=== PATIENT | female | born 1960 | race Caucasian/White ===

== ENCOUNTER 2020-12-24 12:37 | Emergency (ER) | payer MEDICARE, MEDICAID, SELFPAY ==
[2020-12-24 12:41] VITALS: BP 107/58; PULSE 63; RESP 18; TEMP 36.4; O2SAT 100; BMI 23.8
--- NOTE | 2020-12-24 13:09 | ED.BACK ---
HPI - Back Pain/Injury General Chief Complaint: Back Pain/Injury Stated Complaint: flank pain Time Seen by Provider: 12/24/20 13:09 Source: patient Limitations: no limitations History of Present Illness HPI Narrative: Patient complaining of left lower back pain that is been increasing over the past few days. Patient denies any recent trauma assessment shortness of breath. Patient states pain increases when she lifts her left leg. Patient denies any urinary symptoms history of renal calculi. No other complaints at this time. Pain is 02/19 Related Data Previous Rx's Medication Instructions Recorded ibuprofen 600 mg PO TID PRN #20 tab 12/24/20 methocarbamol 750 mg PO TID PRN #20 tab 12/24/20 Allergies Allergy/AdvReac Type Severity Reaction Status Date / Time meperidine [Demerol] Allergy Unknown Verified 08/21/17 00:00 From DEMEROL Allergy Unknown HBP Uncoded 04/29/20 16:21 Review of Systems Constitutional: Constitutional: Denies chills, Denies fever(s), Denies headache(s) and Denies weakness ENT: Denies headache(s) Cardiovascular: Cardiovascular: Denies chest pain, Denies chest pain with activity, Denies Epigastric Pain, Denies palpitations and Denies dyspnea Respiratory: Respiratory: Denies cough and Denies dyspnea Gastrointestinal: Gastrointestinal: Denies diarrhea, Denies nausea and Denies vomiting Genitourinary: Genitourinary: Denies urinary incontinence, Denies urinary hesitancy and Denies urinary urgency Musculoskeletal: Musculoskeletal: Denies tingling Comments: Left-sided lower back pain Integumentary/Breasts: Skin/Breast: Denies rash Neurologic: Denies headache(s), Denies tingling and Denies weakness Endocrine: Endocrine: Denies palpitations Hematologic/Lymphatic: Hematologic/Lymphatic: Denies easy bleeding Allergic/Immunologic: Allergic/Immunologic: Denies urticaria PMFSH Past Medical History Attestation statement: The following information was validated with the patient. Medical History Acute anxiety Acute insomnia Depression Kidney stones Surgical History No history of previous surgery Social History Social History Advance Directives: Yes Advance Directives Information Provided: No Advance Directives on File: No Patient : No Physical Exam Vital Signs: Vital Signs: Last Vital Signs Temp 97.6 F 12/24/20 12:41 Pulse 63 12/24/20 12:41 Resp 18 12/24/20 12:41 BP 107/58 L 12/24/20 12:41 Pulse Ox 100 12/24/20 12:41 Body Mass Index 23.8 vital signs have been reviewed as normal and appeared to be correct. Blood pressure normal. Heart rate normal. Respiration rate normal. Temperature normal. Oxygen saturation normal. Appearance: Alert. Oriented X3. No acute distress. Head: Normal external exam. Normocephalic. Atraumatic. Eyes: PERRLA. EOMI. Conjunctiva and sclera normal. Eyelids normal. ENT: Pharynx normal. Uvula midline. Neck: Soft full range of motion CVS: Heart regular rate and rhythm no murmurs and rubs Respiratory: Breath sounds are clear to auscultation bilaterally. No accessory muscle use noted. Abdomen: Soft nontender no rebound or guarding positive bowel sounds Back: No CVA tenderness. Positive tenderness left paraspinal muscle of the lumbar spine no midline tenderness positive straight leg raise the left Skin: Skin warm and dry. Normal skin color. Extremities: No lower extremity edema. Extremities exhibit normal range of motion. Neuro: Oriented X 3. No motor deficit. No sensory deficit. Reflexes normal. Course Course Course Narrative: Differential diagnosis: Left-sided lumbar strain Disc disease Left leg sciatica UTI Pyelonephritis Renal calculus likely pain increases with range of motion palpation Will check UA at this time 2:07 p.m. UA is negative symptoms is consistent with muscle skeletal pain will discharge at this time MDM - Back Pain/Injury Lab Data Labs: Lab Results 12/24/20 Range/Units 13:17 Urine Color YELLOW Urine Appearance HAZY Urine pH 5.5 (5.0-8.0) Ur Specific [place] >= 1.030 H (1.005-1.025) Urine Protein NEG (NEG-TRACE) MG/DL Urine Glucose (UA) NEG (NEG) MG/DL Urine Ketones NEG (NEG) MG/DL Urine Blood TRACE (NEG) Urine Nitrite NEG (NEG) Ur Leukocyte Esterase TRACE H (NEG) Urine RBC 0-2 (0) /HPF Urine WBC 0-2 (0-4) /HPF Ur Squamous Epith Cells 2+ /LPF Calcium Oxalate Crystal 2+ /LPF Urine Bacteria 1+ /LPF Discharge Plan Discharge Clinical Impression: Strain of lumbar region, Sciatica Patient Disposition: Home, Self-Care Instructions: Acute Low Back Pain (ED) Additional Instructions: Rest ice to heat Follow-up with your PCP Prescriptions: New methocarbamol 750 mg tablet 750 mg PO TID PRN (Reason: pain) Qty: 20 RF: 0 ibuprofen 600 mg tablet 600 mg PO TID PRN (Reason: pain) Qty: 20 RF: 0
[2020-12-24 13:33] LABS: Glucose Urine UA NEG (NEG); Leukocyte Esterase Urine TRACE (NEG); Nitrite Urine NEG (NEG); PH 5.5 (5.0-8.0); Specific Gravity - Urine >= 1.030 (1.005-1.025); Urine Blood TRACE (NEG); Urine Ketones NEG (NEG); Urine Protein NEG (NEG-TRACE)
[2020-12-24 13:35] LABS: Appearance Urine HAZY; Color Urine YELLOW
[2020-12-24 13:47] LABS: Bacteria Urine 1+ /LPF; Calcium Oxalate Crystals Urine 2+ /LPF; RBC Urine 0-2 /HPF (0); Squamous Epithelial Cell Urine 2+ /LPF; WBC Urine 0-2 /HPF (0-4)
== END 2020-12-24 14:24 | disposition home or self-care (01) ==
PROVIDERS: Physician Assistant; Emergency Provider Emergency Medicine; PCP Internal Medicine
DX: M54.42 Lumbago with sciatica, left side (principal); Z79.899 Other long term (current) drug therapy
CPT/HCPCS: 81001; 99283

== ENCOUNTER 2021-02-11 09:46 | Outpatient (REF) | payer MEDICARE, MEDICAID, SELFPAY ==
--- NOTE | ~2021-02-11 | MM_ITS ---
EXAMINATION: BONE DENSITOMETRY CLINICAL INDICATION: Asymptomatic menopausal state. COMPARISON: This is the patient's baseline examination. TECHNIQUE: Using a [employer]iji DXA System (software version: 13.1) manufactured by [employer], dual-energy x-ray absorptiometry was performed of the lumbar spine and left hip. The images are of good technical quality. Summary results are attached. FINDINGS: AP SPINE L1-L4: BMD 0.937 g/cm2, Z-score -0.5, T-score -2.0, osteopenia. LEFT FEMUR, NECK: BMD 0.768 g/cm2, Z-score -0.5, T-score -1.9, osteopenia. LEFT FEMUR, TOTAL: BMD 0.854 g/cm2, Z-score -0.1, T-score -1.2, osteopenia. IDENTIFIED RISK FACTORS: Early menopause, secondary osteoporosis, tobacco use (current smoker), low calcium intake. HISTORY OF FRACTURE: None listed. MEDICATIONS: None listed. MM/XR DEXA axial skeleton IMPRESSION: 1. DIAGNOSIS: Osteopenia based on the lowest T-score value of -2.0 in the lumbar spine applying World Health Organization criteria. 2. 10-YEAR FRACTURE RISK PREDICTION, FRAX: Major osteoporotic fracture (clinical spine, forearm, hip or shoulder) 5.4%. Hip fracture 1.1%. 3. Treatment Recommendations: NOF guidelines recommend consideration for treatment in postmenopausal women and men age 50 and older presenting with the following: -A hip or vertebral (clinical or morphometric) fracture. -T-score less than or equal to -2.5 at the femoral neck or spine after appropriate evaluation to exclude secondary causes. -Low bone mass at the hip or spine and a 10-year fracture probability by FRAX of greater than or equal to 3% for hip fracture or greater than or equal to 20% for major osteoporotic fracture based on the [place] adapted WHO algorithm. 4. Other Recommendations: All treatment decisions require clinical judgment and consideration of individual patient factors, including patient preferences, comorbidities, previous drug use, risk factors not captured in the FRAX model (e.g. frailty, falls, vitamin D deficiency, increased bone turnover, interval significant decline in bone density) and possible under or overestimation of fracture risk by FRAX. Additional medical evaluation for secondary cause of low bone mineral density may be appropriate. FUTURE SCAN RECOMMENDATION: People with diagnosed cases of osteoporosis or at high risk for fracture should have regular bone mineral density tests. For patients eligible for Medicare, routine testing is allowed once every 2 years. The testing frequency can be increased to one year for patients who have rapidly progressing disease, those who are receiving or discontinuing medical therapy to restore bone mass, or have additional risk factors.
== END 2021-02-11 09:47 | disposition home or self-care (01) ==
LOC: HO.MAMMO 09:46
PROVIDERS: PCP Internal Medicine; Visit Provider Internal Medicine
DX: Z13.820 Encounter for screening for osteoporosis (principal); M85.80 Other specified disorders of bone density and structure, unspecified site; F17.200 Nicotine dependence, unspecified, uncomplicated; Z78.0 Asymptomatic menopausal state
CPT/HCPCS: 77080

== ENCOUNTER 2021-02-18 13:29 | Outpatient (REF) | payer MEDICARE, MEDICAID, SELFPAY ==
--- NOTE | ~2021-02-18 | MM_ITS ---
EXAMINATION: MM SCREENING DIGITAL BREAST TOMOSYNTHESIS, BILATERAL CLINICAL INFORMATION: Screening. Asymptomatic. No prior mammography. Age 60. No known family history breast cancer. The lifetime risk of breast cancer based on the Tyrer-Cuzick Model is 4%. COMPARISON: None (current study represents initial baseline exam). TECHNIQUE: Digital breast tomosynthesis is performed in both the craniocaudal and mediolateral oblique views along with computer-aided detection (CAD). Synthesized 2D images are generated from the tomosynthesis. Additional bilateral CC views are provided. FINDINGS: The breasts are heterogeneously dense, which may obscure small masses (ACR BI-RADS breast composition Category c). There is benign appearing inhomogeneous parenchymal pattern. There is accessory breast tissue in the posterior upper left breast better appreciated on MLO view. The bilateral breasts show no significant mass or architectural abnormality. There are no abnormal calcifications. The axilla are unremarkable. MM/MM tomosynthesis screening BI IMPRESSION: No mammographic evidence of malignancy. ASSESSMENT: BI-RADS 2: Benign RECOMMENDATION: Routine annual mammography screening. This patient's information was entered into a reminder system with a target due date for their next mammogram.
== END 2021-02-18 13:30 | disposition home or self-care (01) ==
LOC: HO.MAMMO 13:29
PROVIDERS: Visit Provider Internal Medicine
DX: Z12.31 Encounter for screening mammogram for malignant neoplasm of breast (principal)
CPT/HCPCS: 77063; 77067

== ENCOUNTER 2021-02-23 09:31 | Outpatient (REF) | payer MEDICARE, MEDICAID, SELFPAY ==
[2021-02-26 21:27] LABS: HPV mRNA E6/E7 rflx Not Detected (Not Detected)
== END 2021-02-23 09:32 | disposition home or self-care (01) ==
LOC: HO.LAB 09:31
PROVIDERS: PCP Internal Medicine; Visit Provider Obstetrics & Gynecology
DX: Z01.419 Encounter for gynecological examination (general) (routine) without abnormal findings (principal); Z11.51 Encounter for screening for human papillomavirus (HPV)
CPT/HCPCS: 87624; 88142

== ENCOUNTER 2021-11-09 13:43 | Outpatient (REF) | payer MEDICARE, MEDICAID, SELFPAY ==
[2021-11-09 13:53] LABS: MANUAL DIFF FLAG NO
[2021-11-09 14:12] LABS: Basophils Percent Auto 0.3 % (0-2); Eosinophils Absolute Auto 0.1 X10*3/uL (0.0-0.4); Eosinophils Percent Auto 2.1 % (0-4); Hematocrit 38.8 % (37.0-47.0); Hemoglobin 12.9 g/dl (12.0-16.0); Imm Gran Abs Auto 0.01 X10*3/uL (0.00-0.03); Imm Gran Pct Auto 0.2 % (0.0-0.4); Lymphocytes Absolute Auto 2.9 X10*3/uL (1.2-4.9); Lymphocytes Percent Auto 44.1 % (20-40); Mean Corpuscular HGB Conc 33.2 g/dl (31.0-35.0); Mean Corpuscular Hemoglobin 31.2 pg (27.0-33.0); Mean Corpuscular Volume 93.7 fL (80.0-98.0); Mean Platelet Volume 9.4 fL (9.4-12.3); Monocytes Absolute Auto 0.4 X10*3/uL (0.1-1.2); Monocytes Percent Auto 6.1 % (2-11); Neutrophils Absolute Auto 3.1 x10*3/uL (2.0-8.3); Neutrophils Percent Auto 47.2 % (45-73); Platelet Count 271 X10*3/uL (160-400); Red Blood Count 4.14 X10*6/uL (4.20-5.50); White Blood Count 6.5 X10*3/uL (4.8-10.8)
[2021-11-09 14:20] LABS: Appearance Urine HAZY; Color Urine YELLOW; Glucose Urine UA NEG (NEG); Leukocyte Esterase Urine NEG (NEG); Nitrite Urine NEG (NEG); PH 5.5 (5.0-8.0); Specific Gravity - Urine >= 1.030 (1.005-1.025); UACC Culture Trigger NO; Urine Blood 2+ (NEG); Urine Ketones NEG (NEG); Urine Protein NEG (NEG-TRACE)
[2021-11-09 14:29] LABS: Bacteria Urine 2+ /LPF; Squamous Epithelial Cell Urine 4+ /LPF
[2021-11-09 14:42] LABS: Alanine Aminotransferase 10 U/L (0-31); Albumin Level 4.3 g/dL (3.5-5.0); Alkaline Phosphatase 59 U/L (39-117); Anion Gap 8 (12-20); Aspartate Amino Transferase 16 U/L (5-31); Bilirubin Total 0.5 mg/dL (0.0-1.0); Blood Urea Nitrogen 10 mg/dL (9-16); Calcium 9.5 mg/dL (8.4-10.2); Carbon Dioxide 30 mmol/L (22-29); Chloride 105 mmol/L (96-108); Cholesterol 243 mg/dL; Estimated Glomerular Filt Rate 50; Glucose Fasting 85 mg/dL (60-99); HDL Cholesterol 56 mg/dL; LDL Cholesterol Calculated 165 mg/dl; Potassium 4.1 mmol/L (3.3-5.1); Sodium 139 mmol/L (135-145); Total Protein 7.3 g/dL (6.5-8.0); Triglycerides 113 mg/dL
[2021-11-09 15:02] LABS: Vitamin D 25-OH Total 18.4 ng/mL (>30)
== END 2021-11-09 13:44 | disposition home or self-care (01) ==
LOC: HO.LAB 13:43
PROVIDERS: PCP Internal Medicine; Visit Provider Internal Medicine
DX: Z00.00 Encounter for general adult medical examination without abnormal findings (principal); R63.0 Anorexia; R63.4 Abnormal weight loss; E55.9 Vitamin D deficiency, unspecified
CPT/HCPCS: 36415; 80053; 80061; 81001; 82306; 84443; 85025

== ENCOUNTER 2021-11-22 16:10 | Outpatient (REF) | payer MEDICARE, MEDICAID, SELFPAY ==
[2021-11-23 12:54] LABS: H Pylori Breath Test Negative (Negative)
== END 2021-11-22 16:11 | disposition home or self-care (01) ==
LOC: HO.LNP 16:10
PROVIDERS: PCP Internal Medicine; Referring Provider Internal Medicine; Visit Provider Nurse Practitioner Family
DX: R10.13 Epigastric pain (principal); R19.7 Diarrhea, unspecified; R11.0 Nausea; F17.200 Nicotine dependence, unspecified, uncomplicated; Z11.0 Encounter for screening for intestinal infectious diseases; Z88.6 Allergy status to analgesic agent
CPT/HCPCS: 83013; 99202

== ENCOUNTER 2021-12-16 15:38 | Outpatient (REF) | payer MEDICARE, MEDICAID, SELFPAY ==
[2021-12-16 16:29] LABS: Lipase 27 U/L (8-78)
[2021-12-20 13:56] LABS: Transglutaminase Ab IgG <1.0 U/mL; Transglutaminase IgA <1.0 U/mL
== END 2021-12-16 15:39 | disposition home or self-care (01) ==
LOC: HO.LAB 15:38
PROVIDERS: PCP Internal Medicine; Visit Provider Nurse Practitioner Family
DX: R10.9 Unspecified abdominal pain (principal)
CPT/HCPCS: 36415; 83690; 86364

== ENCOUNTER → 2022-01-24 15:54 | Outpatient (BNVA) | payer MEDICARE, MEDICAID, SELFPAY | PROVIDERS: PCP Internal Medicine; Visit Provider Nurse Practitioner Family | DX: K21.9 Gastro-esophageal reflux disease without esophagitis (principal); K58.2 Mixed irritable bowel syndrome; R11.0 Nausea; R19.7 Diarrhea, unspecified; Z79.899 Other long term (current) drug therapy | CPT/HCPCS: 99212 ==

== ENCOUNTER 2022-02-06 09:22 | Outpatient (REF) | payer MEDICARE, MEDICAID, SELFPAY ==
[2022-02-06 10:09] LABS: Amylase 80 U/L (28-100)
[2022-02-06 11:14] LABS: Folate 6.1 ng/mL (> or = 4.0); Vitamin B12 254 pg/mL (200-900)
== END 2022-02-06 09:23 | disposition home or self-care (01) ==
LOC: HO.LAB 09:22
PROVIDERS: PCP Internal Medicine; Visit Provider Nurse Practitioner Family
DX: R19.7 Diarrhea, unspecified (principal); K21.9 Gastro-esophageal reflux disease without esophagitis
CPT/HCPCS: 36415; 82150; 82607; 82746

== ENCOUNTER → 2022-03-07 16:07 | Outpatient (BNVA) | payer MEDICARE, MEDICAID, SELFPAY | PROVIDERS: PCP Internal Medicine; Visit Provider Nurse Practitioner Family | DX: K21.9 Gastro-esophageal reflux disease without esophagitis (principal); R63.4 Abnormal weight loss; R63.0 Anorexia | CPT/HCPCS: 99212 ==

== ENCOUNTER 2022-05-31 11:09 | Day surgery (SDC) | payer MEDICARE, MEDICAID, SELFPAY ==
--- NOTE | 2022-05-30 11:50 | HO.ANESPROP2 ---
Documented by User: Wen Lai NP 05/30/22 11:51 HPI - Anesthesia Eval Consult details Narrative: 61yo F for Upper Endoscopy and Colonoscopy PMFSH Active Problems Active Problems: All Active Problems (Updated 02/23/21 @ 09:52 by Jesus Paredes MD) Well woman exam (Acute) Smoker (Acute) Depression (Acute) Menopause (Acute) Colon cancer screening (Acute) Acute lumbar myofascial strain (Acute) Anorexia (Acute) Weight loss, unintentional (Acute) Annual physical exam (Acute) Past Medical History Medical History Acute anxiety Acute insomnia Acute lumbar myofascial strain Anorexia Colon cancer screening Depression Kidney stones Menopause Smoker Weight loss, unintentional Family History Family History Maternal Uncle HTN (hypertension) Maternal Uncle HTN (hypertension) Maternal Uncle HTN (hypertension) Maternal Uncle HTN (hypertension) Maternal Uncle HTN (hypertension) Family/Other Cancer Surgical History Surgical History No history of previous surgery Social History Social History Alcohol intake: current Alcohol intake frequency: holidays/special occasions only Patient Tobacco Use Status: Current everyday Tobacco user Tobacco use type: Cigarette Cigarettes Per Day: 6 Date Education Initiated: 05/31/22 Use of substances other than those prescribed or required for medical reasons: No Are you DNR?: No Advance Directives: No Advance Directives Information Provided: Yes Recently lost weight without trying: Yes Patient : No Meds Allergies Allergy/AdvReac Type Severity Reaction Status Date / Time meperidine [Demerol] Allergy Unknown HBP Verified 05/25/22 16:40 Exam Exam Date and Time: May 30, 2022 1150 Pertinent Lab Results Pertinent Lab Results: Laboratory Tests 11/09/21 11/09/21 13:48 13:48 WBC 6.5 Hgb 12.9 Hct 38.8 Plt Count 271 Sodium 139 Potassium 4.1 Chloride 105 Carbon Dioxide 30 H BUN 10 Creatinine 1.11 Assessment and Plan Assessment Anesthesia Assessment: Chart Reviewed Documented by User: Emily Redd MD 05/31/22 13:05 PMFSH Past Medical History Medical History Acute anxiety Acute insomnia Acute lumbar myofascial strain Anorexia Colon cancer screening Depression Kidney stones Menopause Smoker Weight loss, unintentional Functional capacity: independent ambulation Patient : No Family History Family History Maternal Uncle HTN (hypertension) Maternal Uncle HTN (hypertension) Maternal Uncle HTN (hypertension) Maternal Uncle HTN (hypertension) Maternal Uncle HTN (hypertension) Family/Other Cancer Family history of problems with anesthesia: No Surgical History Surgical History No history of previous surgery History of Problems with Anesthesia: No Social History Social History Alcohol intake: current Alcohol intake frequency: holidays/special occasions only Patient Tobacco Use Status: Current everyday Tobacco user Tobacco use type: Cigarette Cigarettes Per Day: 6 Date Education Initiated: 05/31/22 Use of substances other than those prescribed or required for medical reasons: No Are you DNR?: No Advance Directives: No Advance Directives Information Provided: Yes Recently lost weight without trying: Yes Patient : No Meds Allergies Allergy/AdvReac Type Severity Reaction Status Date / Time meperidine [Demerol] Allergy Unknown HBP Verified 05/25/22 16:40 Exam Airway Mallampati Class: II TM Dist: >3cm Neck ROM: Full Heart: RRR Lungs: CTA Assessment and Plan Final Anesthetic Review Family History of Problems with Anesthesia: No History of Problems with Anesthesia: No ASA Class: II Final Preanesthetic Review: No Changes in Pt Med Stat, Meds/Allgs Chart Reviewed, Consent Obtained/Reviewed and Anes Risks/Benef Reviewed Patient Risk: Low Procedure Risk: Low Anesthetic Plan Anesthetic Plan: MAC: Disposition: Standard PACU
[2022-05-31 11:51] VITALS: BP 102/58; PULSE 63; RESP 18; TEMP 36.1; O2SAT 98; BMI 20.5
[2022-05-31] MEDS: Lactated Ringers 1,000 ML 100 ML IVCONT (12:19)
--- NOTE | 2022-05-31 12:32 | MHC.SHP ---
Pre-Procedural Eval Section A Date of Service: 05/31/22 Section B Chief Complaint: screening,IBS,gaseous,reflux Relevant Family History (Specify if Yes): No Relevant Social History: Tobacco Use Present Medications: see Short Stay Collaborative assessment Medical History: Significant History (Acute anxiety Acute insomnia Acute lumbar myofascial strain Anorexia Colon cancer screening Depression Kidney stones Menopause Smoker Weight loss, unintentional) History of Previous Operations: No relevant previous surgery Allergies: Allergies Allergy/AdvReac Type Severity Reaction Status Date / Time meperidine [Demerol] Allergy Unknown HBP Verified 05/25/22 16:40 Review of Systems Sugical H&P ROS: Negative: Constitution, Cardiovascular, Respiratory, Neurological, Psychiatric, Hem-Onc, Allergic/Immunologic, Gastrointestinal, Genitourinary, Musculoskeletal, Integumentary, Endocrine and Eyes/Ears/Nose/Throat Exam Surgical H&P Exam: Normal: HEENT, Normal: Heart, Normal: Lungs, Normal: Extremities, Normal: Abdomen, Normal: Skin and Normal: Neurological Plan Diagnosis/Plan: Unchanged I have reviewed the history and physical and performed a pertinent physical examination on my patient. No changes have occurred unless specified.
--- NOTE | 2022-05-31 12:40 | W.PM.OPN ---
Operative Note Operative Note Date of Service: 05/31/22 Narrative: Operative Information Procedure Description: EGD, Colonoscopy Indication: GERD, screening Anesthesia: MAC FLEXIBLE TRANSORAL UPPER GASTROINTESTINAL ENDOSCOPY AND COLONOSCOPY PROCEDURE NOTE UPPER ENDOSCOPY Consent: Indications for the procedure and potential complications of bleeding, perforation, reaction to medications and missed diagnosis were discussed with the patient and informed consent was obtained. Instrument: Olympus GIF H 190 J mid size upper endoscope Monitoring: Vital signs and clinical assessment, continuous EKG monitoring, Pulse oximetry, Carbon Dioxide monitoring and blood pressure monitoring were done throughout the procedure. Procedure: The patient was placed in the left lateral decubitis position and pre-procedure medications were administered and a bite block was placed. The endoscope was inserted into the mouth and advanced under direct vision to the third part of duodenum. A careful inspection was made as the upper endoscope was withdrawn including a retroflexed examination of the proximal stomach; Findings and interventions are described below. Findings: Larynx:normal Esophagus: GE junction at 32 cm, diaphragm hiatus at 34 cm, consistent with 2 cm hiatal hernia, esophagitis noted at GEJ, bx taken from here and distal, proximal esophagus, small inlet patch noted Stomach: Normal mucosa. Biopsies were obtained. Grade 2 flap valve on retroflexed examination of the cardia. Duodenum: Normal bulb and descending duodenum, bx taken Intervention: Biopsies as noted above COLONOSCOPY Instrument: Olympus variable stiffness pediatric scope 190L Colonoscopy Monitoring: Vital signs and clinical assessment, continuous EKG monitoring, Pulse oximetry, Carbon Dioxide monitoring and blood pressure monitoring were done throughout the procedure. Colon withdrawal time was 7 minutes. Procedure: The patient was placed in the left lateral decubitis position and pre-procedure medications were administered. After a digital rectal examination of the ano-rectum, the video colonoscope was inserted into the rectum and advanced through the colon to the cecum/TI. The colonoscope was slowly withdrawn in a retrograde panoramic fashion and the colon mucosa was carefully examined including a retroflexed view of the rectum. Findings and interventions are described below. Procedure Difficulty: Findings: Terminal Ileum-normal Cecum:normal Ascending Colon: 10 mm sessile polyp removed with cold snare Transverse Colon - 6-7 mm sessile polyp removed with cold forceps Descending Colon:normal Sigmoid Colon: 12-14 mm peduculated polyp removed with cold snare with one clip applied for hemostasis Rectum: Retroflexion with small internal hemorrhoids, grade I Anorectum - normal Colon preparation: [place] Bowel Preparation Scale Right colon; 2 Transverse colon: 3 Left colon; 3 (0 = Unprepared colon segment with mucosa not seen due to solid stool that cannot be cleared. 1 = Portion of mucosa of the colon segment seen, but other areas of the colon segment not well seen due to staining, residual stool and/or opaque liquid. 2 = Minor amount of residual staining, small fragments of stool and/or opaque liquid, but mucosa of colon segment seen well. 3 = Entire mucosa of colon segment seen well with no residual staining, small fragments of stool or opaque liquid) Impression and Post Procedure Diagnosis: Endoscopy Findings: inet patch esophagitis hiatal hernia Colonoscopy Findings: polyps internal hemorrhoids Plan: Await Pathology results Repeat Colonoscopy in 1-2 years due to polyps geoff larger peduculated polyp in sigmoid or earlier if clinically indicated High fiber diet leaflet avoid straining at stool, epsom salts and sitz bath, anusol supps or cream reflux precautions, if H pylori pos then treat Above findings were reviewed with the patient and relevant handouts were provided if indicated.
[2022-05-31 13:31] VITALS: BP 101/53; PULSE 68; RESP 15; TEMP 36.2; O2SAT 97
[2022-05-31 13:45] VITALS: BP 109/67; PULSE 50; RESP 15; O2SAT 100
[2022-05-31 13:57] VITALS: BP 110/51; PULSE 53; RESP 16; TEMP 36.3; O2SAT 99
--- NOTE | 2022-05-31 14:07 | HO.POSTANES ---
Post Anesthesia Evaluation Post Anesthesia Evaluation Vital Signs: Vital Signs Temp Pulse Resp BP Pulse Ox O2 Del Method 05/31/22 13:57 97.3 F 53 16 110/51 L 99 Room Air 05/31/22 13:45 50 15 109/67 100 Room Air 05/31/22 13:31 97.2 F 68 15 101/53 L 97 Room Air 05/31/22 11:51 97.0 F 63 18 102/58 L 98 Room Air Anesthesia: Monitored Mental Status: Awake Pain Control: Satisfactory Nausea/Vomiting: None Hydration: Adequate Anesthesia-Related Issues: No Anes. Related Issues
== END 2022-05-31 14:35 | disposition home or self-care (01) ==
PROVIDERS: PCP Internal Medicine; Visit Provider Internal Medicine Gastroenterology
PROC: (CPT 45385; principal; 2022-05-31 12:50)
DX: Z12.11 Encounter for screening for malignant neoplasm of colon (principal); D12.2 Benign neoplasm of ascending colon; D12.5 Benign neoplasm of sigmoid colon; K63.5 Polyp of colon; K64.0 First degree hemorrhoids; K58.2 Mixed irritable bowel syndrome; R14.0 Abdominal distension (gaseous); R63.4 Abnormal weight loss; Z68.20 Body mass index [BMI] 20.0-20.9, adult; K21.9 Gastro-esophageal reflux disease without esophagitis; K20.80 Other esophagitis without bleeding; K44.9 Diaphragmatic hernia without obstruction or gangrene; Q39.8 Other congenital malformations of esophagus; F41.1 Generalized anxiety disorder; F32.A Depression, unspecified; Z79.1 Long term (current) use of non-steroidal anti-inflammatories (NSAID); Z79.899 Other long term (current) drug therapy; Z88.8 Allergy status to other drugs, medicaments and biological substances; F17.210 Nicotine dependence, cigarettes, uncomplicated
CPT/HCPCS: 45385; 45380; 43239; 88305; 88342

== ENCOUNTER 2023-06-01 17:06 | Outpatient (AMB) | payer MEDICARE, MEDICAID, SELFPAY ==
[2023-06-01 17:07] VITALS: BP 116/80; PULSE 70; O2SAT 97; BMI 23.0
--- NOTE | 2023-06-01 17:07 | A.OFFVIS_ITS ---
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 Accompanied by: Self / Same As Patient Allergies meperidine [Demerol] Allergy (Unknown, Verified 06/01/23 17:36) HBP Medication List - Last Reconciled 06/01/23 by Holland Garces MD bisacodyl 10 mg (2 x 5 mg) PO BEDTIME diclofenac sodium 1% (Arthritis Pain (diclofenac)) 2 grams topical QID PRN ibuprofen 800 mg PO TID PRN lidocaine 5% 1 patch topical DAILY PRN 15 days pqilfe-[id number]-mtxwqzh 6,000-19,000 -30,000 unit (Creon) 1 cap PO .qid ac magnesium citrate (Citrate of Magnesia oral) 150 mL PO DAILY methocarbamol 750 mg PO TID PRN methylcellulose (laxative) (Citrucel) 500 mg PO DAILY mirtazapine 7.5 mg PO BEDTIME ondansetron 4 mg PO Q8H PRN pantoprazole 40 mg PO DAILY Do you need a note to return to daycare/school/sports/work: No HPI AWV HPI Details Patient comes in today for her Annual Medicare Wellness Exam and follow up visit - was last seen by me in December 2020 States that she spent about 4 months in [place] earlier this year to stay with and help take care of her elderly mother (92 y/o), who is suffering from dementia States that she has been experiencing increased pain over her entire left thumb for the past couple of weeks now, and that her thumb sometimes feels like it gets stuck and she cannot bend or move it for a while - thinks that she may have a trigger finger/thumb She denies any recent injury or trauma to her thumb or hand Would like to at least get her Ibuprofen Rx refilled to help with her pain Patient had her colonoscopy done with Dr. Fan last May 2022 but she did not follow up with them after her procedure She reportedly had some large polyps and at least one of them came back as a tubular adenoma and Dr. Fan recommended a repeat colonoscopy in 1 to 2 years - she is therefore advised to call them back to schedule a follow up appointment with them LOLA Patient denies any headaches or dizziness Denies any chest pains, no SOB No nausea/vomiting, no abdominal pain No change in bowel habits noted Denies any acute urinary symptoms She last had her mammogram done a couple of years ago in 2020; BMD was also done in 2020 and will be due for repeat BMD next year (2023) Her last central office maintainer exam and pap smear was also done in February 2021 IPPE/AWV: c/o of Annual Wellness Visit, initial visit. Medical / Social History Reviewed Past Medical History Yes . [place] of Care / Care Team list updated Yes . Surgical/Hospitalization History Yes . Current Medications (including OTC and supplements) Yes . Family History Yes . Tobacco Control form Yes . AUDIT-C (Alcohol use) form Yes . Illicit drug use in Social History Yes . Current diagnosis of depression? No Appropriate PHQ2/PHQ9 completed Yes . Data entered by Pipe Fitter Ammonia and reviewed by provider Home Safety Throw rugs? No Grab bars? No Raised toilet seats? No Working smoke detectors? Yes Working carbon monoxide detectors? Yes Data entered by Pipe Fitter Ammonia and reviewed by provider Activities of Daily Living (ADLs) Difficulty bathing or showering? No Difficulty dressing? No Difficulty using the toilet? No Difficulty getting in and out of bed? No Difficulty walking? No Receives help from another person with any of the above tasks? No Instrumental Activities of Daily Living (IADLs) Uses the telephone without help Gets to places out of walking distance without help Goes shopping for groceries without help Prepares own meals without help Does own minor home maintenance without help Does own laundry without help Does own housework without help Manages own money without help Currently takes medications? Yes Takes medication without help End-of-Life Planning Discussed advance directive Yes Advance directive on file Discussed wishes expressed in advance directive agreed to following patient's wishes Fall Risk: Fall History Have you had any falls with injury in the past year? No . Have you had two or more falls in the past year? No . Fall Risk Assessment: No falls in the past year . HRA filled out by the patient, reviewed by Provider and scanned. FOR[facility]LY [facility], [facility] Medical History (Updated 06/01/23 @ 18:12 by Holland Garces MD) Irritable bowel syndrome (IBS) GERD without esophagitis Smoker Depression Menopause Acute anxiety Acute insomnia Kidney stones Surgical History History of esophagogastroduodenoscopy (EGD) Hx of colonoscopy No history of previous surgery Family History Maternal Uncle HTN (hypertension) Maternal Uncle HTN (hypertension) Maternal Uncle HTN (hypertension) Maternal Uncle HTN (hypertension) Maternal Uncle HTN (hypertension) Family/Other Cancer Social History Alcohol intake: current Alcohol intake frequency: holidays/special occasions only Patient Tobacco Use Status: Current everyday Tobacco user Tobacco use type: Cigarette Cigarettes Per Day: 6 Questionnaire Medicare Wellness Checkup What [age] your [age]?: 65-69 (62) What gender do you identify with?: female During the past 4 weeks, how much have you been bothered by emotional problems such as feeling anxious, depressed, irritable, sad or downhearted, and blue?: quite a bit During the past 4 weeks, has your physical & emotional health limited your social activities with family, friends, neighbors, or groups?: moderately During the past 4 weeks, how much bodily pain have you generally had?: moderate pain During the past 4 weeks, was someone available to help you if you needed & wanted help?: yes, a little During the past 4 weeks, what was the hardest physical activity you could do for at least 2 minutes?: moderate Can you get to places out of walking distance without help? (For eg., can you travel alone on buses, taxis or drive your car?): Yes Can you go shopping for groceries or clothes without someone's help?: Yes Can you prepare your own meals?: Yes Can you do your housework without help?: Yes Because of any health problems, do you need the help of another person with your personal care needs such as eating, bathing, dressing or getting around the house?: No Can you handle your own money without help?: Yes During the past 4 weeks, how would you rate your health in general?: fair During the past 4 weeks how have things been going for you?: good & bad parts about equal Are you having difficulties driving your car?: not applicable, I don't use a car Do you always fasten your seat belt when you are in a car?: yes, usually During past 4 weeks, have you been bothered by the following: never: Falling or dizzy when standing up, Sexual problems?, Trouble eating well?, Teeth or denture problems? and Problems using the telephone? and sometimes: Tiredness or fatigue? Have you fallen 2 or more times in the past year?: No Are you afraid of falling?: No Are you a smoker?: yes, and I might quit During the past 4 weeks, how many drinks of wine, beer, or other alcoholic beverages did you have?: 1 drink or less per week Do you exercise for about 20 minutes 3 or more times a week?: no, I usually do not exercise this much Have you been given information to help with the following?: no: Hazards in your house that might hurt you? and no: Keeping track of your medications? How often do you have trouble taking medicines the way you have been told to take them?: I always take medicine as prescribed How confident are you that you can control & manage most of your health problems?: not very confident What is your race?: or origin or descent Mini Mental State Exam (MMSE) Orientation What is the (year) (season) (date) (day) (month)?: year, season, date, day and month Where are we (state) (county) (town or city) (hospital) (floor)?: state, county, town or city, hospital/clinic and floor Score Score: 10 Activity of Daily Living Bathing - sponge bath, tub bath or shower: receives no assistance (gets in/out by self, if usual bathing means Dressing - getting clothes from closets & drawers, including inner/outer garments & fasteners.: gets clothes & gets completely dressed without help Toileting - going to the 'toilet room' for urine/bowel elimination & cleaning self/arranging clothes: goes to toilet room, cleans self, arranges clothes without help Transfer: moves in & out of bed and chair without help (may use support object) Continence: controls urination/bowel movements completely by self Feeding: feeds self without help Total Score: 0 Information obtained from: patient Using telephone: independent Traveling: independent Shopping: independent Preparing meals: independent Housework: independent Taking medicine: independent Managing money: independent PHQ-9 Over the last 2 weeks, how often have you been bothered by any of the following problems? 1. Little interest or pleasure in doing things: not at all 2. Feeling down, depressed, or hopeless: more than half the days 3. Trouble falling or staying asleep, or sleeping too much: nearly every day 4. Feeling tired or having little energy: nearly every day 5. Poor appetite or overeating: several days 6. Feeling bad about yourself - or that you are a failure or have let yourself or your family down: more than half the days 7. Trouble concentrating on things, such as reading the newspaper or watching television: not at all 8. Moving or speaking so slowly that other people could have noticed. Or the opposite - being so fidgety or restless that you have been moving around a lot more than usual: not at all 9. Thoughts that you would be better off or of hurting yourself in some way: not at all Total score: 11 Depression Screening Interpretation: Positive Depression Screening Follow-up: Existing condition and In treatment Depression Screening Done: Yes 39841 - PHQ-9 Billing: Yes Source: Developed by Drs. Junior Wen, Meena Gay, Lambert Yung and colleagues, with an educational ashvin from [employer]. PHQ-2/PHQ-9 PHQ-2 Over the last 2 weeks, how often have you been bothered by any of the following problems? 1. Little interest or pleasure in doing things: not at all 2. Feeling down, depressed, or hopeless: more than half the days Total score: 2 If score is 3 or greater, continue 3. Trouble falling or staying asleep, or sleeping too much: nearly every day 4. Feeling tired or having little energy: nearly every day 5. Poor appetite or overeating: several days 6. Feeling bad about yourself - or that you are a failure or have let yourself or your family down: more than half the days 7. Trouble concentrating on things, such as reading the newspaper or watching television: not at all 8. Moving or speaking so slowly that other people could have noticed. Or the opposite - being so fidgety or restless that you have been moving around a lot more than usual: not at all 9. Thoughts that you would be better off or of hurting yourself in some way: not at all Total score: 11 0-4 None-Minimal, 5-9 Mild, 10-14 Moderate, 15-19 Moderately Severe, 20-27 Severe Source: Developed by Drs. Junior Wen, Meena Gay, Lambert Yung and colleagues, with an educational ashvin from [employer]. Thrive Questionnaire Date Thrive assessed: 06/01/23 I am a: Patient What is your living situation today?: I have a steady place to live Within the past 12 months, did the food you bought not last and you didn't have the money to get more?: Never true Within the past 12 months, did you worry whether your food would run out before you got money to buy more?: Never true Do you have trouble paying for medicines?: No Do you have trouble getting transportation to medical appointments?: No Do you have trouble paying your heating and electricity bill?: No Do you have trouble taking care of your child, family member or friend?: No Do you have trouble with day-to-day activities such as bathing, preparing meals, shopping, managing finances, etc.?: No Are you currently unemployed and looking for a job?: No Are you interested in more education?: No Please select the resources that you would like help with: None Currently or been in a relationship where the following occur: no concerns reported GUALBERTO-7 AMB Questionnaire GUALBERTO-7 Date GUALBERTO - 7 assessed: 06/01/23 Feeling nervous, anxious, or on edge: 1 = Several days Not being able to stop or control worryin = Several days Worrying too much about different things: 1 = Several days Trouble relaxin = Several days Being so restless that it is hard to sit still: 1 = Several days Becoming easily annoyed or irritable: 1 = Several days Feeling afraid as if something awful might happen: 1 = Several days Total GUALBERTO-7 score (0-4 normal; 5-9 mild; 10-14 moderate; 15-21 severe): 7 Source: Developed by Drs. Junior Wen, Meena Gay, Lambert Yung and colleagues, with an educational ashvin from [employer]. Review of Systems Const Denies chills, Reports difficulty sleeping (at times), Reports fatigue, Denies fever(s) and Denies headache(s) Eyes Denies blurry vision ENT Denies dysphagia, Denies dizziness, Denies otalgia, Denies headache(s), Denies neck pain, Denies odynophagia and Denies sore throat Card Denies chest pain, Denies palpitations and Denies dyspnea Resp Denies cough and Denies dyspnea GI Denies abdominal pain, Denies constipation, Denies dysphagia, Denies heartburn, Denies diarrhea, Denies nausea, Denies odynophagia and Denies vomiting Denies difficulty voiding, Denies nocturia and Denies dysuria Musc Reports arthralgias (left thumb - see HPI) and Denies neck pain Skin/Breast Denies rash Neuro Denies dizziness and Denies headache(s) Endo Reports fatigue and Denies palpitations Physical Exam Vital Signs: Last Vital Signs Pulse 70 06/01/23 17:07 BP 116/80 06/01/23 17:07 Pulse Ox 97 06/01/23 17:07 Oxygen Delivery Method Room Air 06/01/23 17:07 BMI result Body Mass Index 23.0 IPPE/AWV: Balance Romberg Yes . Tandem walk Yes . Walk and Turn Yes . Rise from sit to stand Yes . Vision Corrective lens No Vision screen pass Hearing Whisper test pass . Urinary incont. no. EKG Not clinically necessary. Const General: no acute distress and alert HEENT Ears: TM's normal bilaterally and EAC's normal Throat: Yes posterior oropharynx normal and Yes tonsils normal (no TP congestion) Neck Neck: Yes no lymphadenopathy and Yes supple Resp Auscultation: clear to auscultation bilaterally, no rales and no wheezes Cardio Rate: regular rate Rhythm: regular rhythm Heart sounds: no murmurs GI Palpation (GI): Soft to palpation, nontender and No hepatosplenomegaly present Skin General skin exam: no rashes or lesions noted Extrem General: Yes no clubbing, cyanosis or edema Left upper extremity: hand Details: tenderness Location: of the thumb Location: involving the entire digit; no swelling Assessment & Plan Assessment & Plan (1) Medicare annual wellness visit, initial: Code(s): Z00.00 - Encounter for general adult medical examination without abnormal findings Plan: HRA form completed and discussed with patient; form will be scanned into patient's chart Will send patient for some routine follow up labs LOLA (2) GERD without esophagitis: Code(s): K21.9 - Gastro-esophageal reflux disease without esophagitis Plan: Dietary restrictions reinforced Continue Pantoprazole 40 mg QD (3) Irritable bowel syndrome (IBS): Code(s): K58.9 - Irritable bowel syndrome without diarrhea Qualifiers: Irritable bowel syndrome type: unspecified Qualified Code(s): K58.9 - Irritable bowel syndrome without diarrhea Plan: Reinforced dietary restrictions Continue Creon 1 capsule QID as instructed and Bisacodyl 5 mg 2 tablets Q HS PRN Follow up with GI as scheduled Is advised to contact GI to schedule her follow up appointment and repeat colonoscopy LOLA (4) Pain of left thumb: Code(s): M79.645 - Pain in left finger(s) Plan: Discussed that her symptoms may be due to either osteoarthritis or tenosynovitis Will send her for x-rays of the left hand/thumb LOLA for further evaluation Will also refer her to orthopedics for further evaluation and management Continue Ibuprofen 800 mg TID with food PRN - Rx refilled Will also start her on Diclofenac 1% gel apply to painful joint/thumb QID PRN (5) Smoker: Code(s): F17.200 - Nicotine dependence, unspecified, uncomplicated Plan: Counseled again on smoking cessation (6) Depression: Code(s): F32.9 - Major depressive disorder, single episode, unspecified Qualifiers: Depression Type: major depressive disorder Major depression recurrence: recurrent Active/Remission status: currently active Major depression episode severity: unspecified Qualified Code(s): F33.9 - Major depressive disorder, recurrent, unspecified Plan: Continue Mirtazapine 7.5 mg Q HS (7) Breast cancer screening by mammogram: Code(s): Z12.31 - Encounter for screening mammogram for malignant neoplasm of breast Plan: Will send patient for repeat mammogram (8) Cervical cancer screening: Code(s): Z12.4 - Encounter for screening for malignant neoplasm of cervix Plan: Will refer patient back to [facility] for her annual pap smear and central office maintainer exam Plan Follow up in 6 months or PRN Orders: Orders MM tomosynthesis screening BI Today Z12.31 - Encounter for screening mammogram for malignant neoplasm of breast XR hand LT min 3V Today M79.645 - Pain in left finger(s) Lipid Panel Today E78.00 - Pure hypercholesterolemia, unspecified TSH reflex Free T4 Today E78.00 - Pure hypercholesterolemia, unspecified UA CC w/rflx Micro + Cult Today R30.0 - Dysuria Complete Blood Count Auto Diff Today D64.9 - Anemia, unspecified, F17.200 - Nicotine dependence, unspecified, uncomplicated Comprehensive [place]. Panel Fast Today E78.00 - Pure hypercholesterolemia, unspecified Vitamin D 25-OH Total Today E55.9 - Vitamin D deficiency, unspecified Referrals OIL LEASE OPERATOR Referral Z12.4 - Encounter for screening for malignant neoplasm of cervix Orthopedics Referral M79.645 - Pain in left finger(s) Medications: New diclofenac sodium 1% (Arthritis Pain (diclofenac)) apply to painful joint as needed 2 grams topical QID PRN 100 grams 2RF joint pain Changed From ibuprofen 600 mg PO TID PRN 20 tabs 0RF pain To ibuprofen Take with food 800 mg PO TID PRN 90 tabs 2RF pain Quality Reporting (2019) Depression/Bipolar (159/160/161/177) PHQ-9: Total score: 11 Coding Level of Care Code Medicare First (G0438) Est Pt Level 4 (30972) Diagnoses Medicare annual wellness visit, initial Z00.00 GERD without esophagitis K21.9 Irritable bowel syndrome, unspecified type K58.9 Irritable bowel syndrome type: unspecified Pain of left thumb M79.645 Smoker F17.200 Episode of recurrent major depressive disorder, unspecified depression episode severity F33.9 Depression Type: major depressive disorder Major depression recurrence: recurrent Active/Remission status: currently active Major depression episode severity: unspecified Breast cancer screening by mammogram Z12.31 Cervical cancer screening Z12.4
== END 2023-06-01 17:35 | disposition home or self-care (01) ==
LOC: HO.HMGH 17:06
PROVIDERS: PCP Internal Medicine; Visit Provider Internal Medicine
DX: Z00.00 Encounter for general adult medical examination without abnormal findings (principal); K21.9 Gastro-esophageal reflux disease without esophagitis; F33.9 Major depressive disorder, recurrent, unspecified; K58.9 Irritable bowel syndrome, unspecified; M79.645 Pain in left finger(s); F17.210 Nicotine dependence, cigarettes, uncomplicated; Z12.31 Encounter for screening mammogram for malignant neoplasm of breast
CPT/HCPCS: 99214; G0438

== ENCOUNTER 2025-07-28 16:33 | Outpatient (AMB) | payer MEDICARE, MEDICAID, SELFPAY ==
[2025-07-28 16:45] VITALS: BP 122/62; PULSE 75; RESP 18; O2SAT 98; BMI 26.4
--- NOTE | 2025-07-28 16:45 | MHC.PC.OV ---
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 Accompanied by: Self / Same As Patient Allergies meperidine (Demerol) Allergy (Unknown, Verified 08/02/25 18:19) HBP Medication List - Last Reconciled 07/28/25 by Holland Garces MD bisacodyl 10 mg (2 x 5 mg) PO BEDTIME diclofenac sodium 1% (Arthritis Pain (diclofenac)) 2 grams topical QID PRN ibuprofen 800 mg PO TID PRN lidocaine 5% 1 patch topical DAILY PRN 15 days [id number] (pork) 6,000-19,000 -30,000 unit (Creon) 1 cap PO .qid ac magnesium citrate (Citrate of Magnesia oral) 150 mL PO DAILY methocarbamol 750 mg PO TID PRN methylcellulose (laxative) (Citrucel) 500 mg PO DAILY mirtazapine 7.5 mg PO BEDTIME ondansetron 4 mg PO Q8H PRN pantoprazole 40 mg PO DAILY Tobacco use date assessed: 07/28/25 Dental Screening Dental Screen Date: 07/28/25 Did you have a dental visit in the last 12 months?: No Did you have a dental problem in the last 6 months where you did not have access to dental care?: No Was dental information given to patient?: No HPI follow up HPI Details Patient comes in today for her follow-up visit She was last seen here over 2 years ago on 06/01/2023 States that she just got back from [place] a couple of weeks ago and that she has been going back and forth from [place] to here multiple times over the past couple of years to help take care of her elderly mother, who is currently still living in [place] and is suffering from dementia States that she needs her Rx refilled and also needs to have an annual physical done as well as PPD testing for school LOLA States that for the past two days, she has been experiencing recurrent nasal stuffiness, which she suspects is sinus-related, accompanied by facial pain and a slight cough. She denies fever or bloody nose or sore throat; denies any headaches or dizziness The symptoms began after she returned from [place] two weeks ago, where she was caring for her mother Denies any chest pains, no increased SOB No nausea/vomiting, no abdominal pain No change in bowel habits noted Patient has a history of high cholesterol, with her last labs done over two years ago and will have her try to get her labs done just before her next appointment Her weight has increased by 16 pounds, from 110 to 126 pounds, since her last visit. Her current medications include mirtazapine, a stool softener, patches, a muscle relaxant, and atorvastatin [facility] Medical History (Updated 08/02/25 @ 18:38 by Holland Garces MD) Overweight (BMI 25.0-29.9) Vitamin D deficiency Pure hypercholesterolemia Irritable bowel syndrome (IBS) GERD without esophagitis Smoker Depression Menopause Acute anxiety Acute insomnia Kidney stones Surgical History History of esophagogastroduodenoscopy (EGD) Hx of colonoscopy No history of previous surgery Family History (Updated 07/31/25 @ 13:18 by EJ Valdes) Maternal Uncle HTN (hypertension) Maternal Uncle HTN (hypertension) Maternal Uncle HTN (hypertension) Maternal Uncle HTN (hypertension) Maternal Uncle HTN (hypertension) Family/Other Cancer Social History (Updated 07/31/25 @ 13:28 by EJ Valdes) Housing: Apartment (With daughter) Alcohol intake: current Alcohol intake frequency: holidays/special occasions only Patient Tobacco Use Status: Current everyday Tobacco user Tobacco use type: Cigarette Cigarette Packs Per Day: 0.5 Cigarettes Per Day: 8 e-Cigarette/Vaping Use: Never Used Second Hand Smoke Exposure: Yes service: No Current occupational status: retired and disabled Cognitive needs: No Hearing needs: No Vision needs: No Questionnaire PHQ-9 Over the last 2 weeks, how often have you been bothered by any of the following problems? 1. Little interest or pleasure in doing things: not at all 2. Feeling down, depressed, or hopeless: not at all 3. Trouble falling or staying asleep, or sleeping too much: not at all 4. Feeling tired or having little energy: not at all 5. Poor appetite or overeating: not at all 6. Feeling bad about yourself - or that you are a failure or have let yourself or your family down: not at all 7. Trouble concentrating on things, such as reading the newspaper or watching television: not at all 8. Moving or speaking so slowly that other people could have noticed. Or the opposite - being so fidgety or restless that you have been moving around a lot more than usual: not at all 9. Thoughts that you would be better off or of hurting yourself in some way: not at all Total score: 0 Depression Screening Interpretation: Negative Depression Screening Done: Yes 20595 - PHQ-9 Billing: Yes Source: Developed by Drs. Junior Wen, Meena Gay, Lambert Yung and colleagues, with an educational ashvin from [employer]. Thrive Questionnaire Date Thrive assessed: 07/28/25 I am a: Patient What is your living situation today?: I do not have a steady places to live I choose not to answer this question Within the past 12 months, did the food you bought not last and you didn't have the money to get more?: Sometimes True Within the past 12 months, did you worry whether your food would run out before you got money to buy more?: Sometimes True Do you have trouble paying for medicines?: Yes Do you have trouble getting transportation to medical appointments?: Yes Do you have trouble paying your heating and electricity bill?: Yes Do you have trouble taking care of your child, family member or friend?: I choose not to answer this question Do you have trouble with day-to-day activities such as bathing, preparing meals, shopping, managing finances, etc.?: No Are you currently unemployed and looking for a job?: No Are you interested in more education?: No Currently or been in a relationship where the following occur: No concerns reported THRIVE Score: 5 AUDIT C Alcohol Use Questionnaire (AUDIT-C) Score Reviewed/Action Taken: Yes GUALBERTO-7 AMB Questionnaire GUALBERTO-7 Date GUALBERTO - 7 assessed: 06/01/23 Source: Developed by Drs. Junior Wen, Meena Gay, Lambert Yung and colleagues, with an educational ashvin from [employer] Review of Systems Const Denies chills, Reports difficulty sleeping (at times), Reports fatigue, Denies fever(s) and Denies headache(s) ENT Denies dysphagia, Denies dizziness, Denies otalgia, Denies headache(s), Denies neck pain, Denies odynophagia and Denies sore throat Card Denies chest pain, Denies palpitations and Denies dyspnea Resp Denies chest congestion, Denies cough and Denies dyspnea GI Denies abdominal pain, Denies constipation, Denies dysphagia, Denies heartburn, Denies diarrhea, Denies nausea, Denies odynophagia and Denies vomiting Denies difficulty voiding, Denies nocturia and Denies dysuria Musc Details: (+) chronic pain in the left leg Denies back pain and Denies neck pain Skin/Breast Denies rash Neuro Denies dizziness and Denies headache(s) Psych Reports anxiety and Reports depression Endo Reports fatigue and Denies palpitations Physical exam (Primary Care) Vital Signs: Last Vital Signs Pulse 75 07/28/25 16:45 Resp 18 07/28/25 16:45 BP 122/62 07/28/25 16:45 Pulse Ox 98 07/28/25 16:45 Oxygen Delivery Method Room Air 07/28/25 16:45 BMI result Body Mass Index 26.4 Tobacco/Smoking Status: Tobacco use Status Tobacco use date assessed 07/28/25 07/28/25 16:48 Patient Tobacco Use Status Current everyday Tobacco 07/28/25 16:48 Tobacco use type Cigarette 07/28/25 16:48 PHQ-9: PHQ-9 Score PHQ-9: Total score 0 07/28/25 17:07 Depression Screening Interpretation: Negative Thrive Assessment: Date of Thrive Assessment Date Thrive assessed 07/28/25 07/28/25 16:48 Currently or been in a relationship where the following occur: No concerns reported Const General: no acute distress and alert HENMT Ears: TM's normal bilaterally and EAC's normal Throat: Yes posterior oropharynx normal and Yes tonsils normal (no TP congestion noted) Neck Neck: Yes supple and No lymphadenopathy Thyroid: Thyroid normal Resp Auscultation: clear to auscultation bilaterally, no rales and no wheezes Cardio Rate: regular rate Rhythm: regular rhythm Heart sounds: no murmurs GI Palpation (GI): Soft to palpation and nontender Auscultation: normal bowel sounds General: Yes no CVA tenderness Back/Spine/Pelvis Back: no CVA tenderness Thoracic/Lumbar Spine: No lumbar spinal tenderness Skin Rashes: no rashes Extrem General: Yes no clubbing, cyanosis or edema Coding Level of Care Code Est Pt Level 4 (01324) Diagnoses GERD without esophagitis K21.9 Irritable bowel syndrome, unspecified type K58.9 Irritable bowel syndrome type: unspecified Pure hypercholesterolemia E78.00 Vitamin D deficiency E55.9 Episode of recurrent major depressive disorder, unspecified depression episode severity F33.9 Active/Remission status: currently active Depression Type: major depressive disorder Major depression episode severity: unspecified Major depression recurrence: recurrent Smoker F17.200 Overweight (BMI 25.0-29.9) E66.3 Additional Codes PHQ-9 - 67904 - PHQ-9 Billing: Yes ([id number]) Assessment & Plan Assessment & Plan (1) GERD without esophagitis: Code(s): K21.9 - Gastro-esophageal reflux disease without esophagitis Category: Medical Plan: Dietary restrictions reinforced Continue Pantoprazole 40 mg QD (2) Irritable bowel syndrome (IBS): Code(s): K58.9 - Irritable bowel syndrome, unspecified Category: Medical Qualifiers: Irritable bowel syndrome type: unspecified Qualified Code(s): K58.9 - Irritable bowel syndrome without diarrhea Plan: Reinforced dietary restrictions Continue Creon 1 capsule QID as instructed and Bisacodyl 5 mg 2 tablets Q HS PRN Follow up with GI as scheduled She is again advised to contact GI to schedule her follow up appointment and repeat colonoscopy LOLA (3) Pure hypercholesterolemia: Code(s): E78.00 - Pure hypercholesterolemia, unspecified Category: Medical Plan: Reinforced low cholesterol diet Will have patient recheck her labs and fasting lipids LOLA for follow up (4) Vitamin D deficiency: Code(s): E55.9 - Vitamin D deficiency, unspecified Category: Medical Plan: Will recheck her Vitamin D level for follow up (5) Depression: Code(s): F32.9 - Major depressive disorder, single episode, unspecified Category: Medical Qualifiers: Active/Remission status: currently active Depression Type: major depressive disorder Major depression episode severity: unspecified Major depression recurrence: recurrent Qualified Code(s): F33.9 - Major depressive disorder, recurrent, unspecified Plan: She was supposed to be on Mirtazapine 7.5 mg Q HS but admits that she has not been taking her Rx in a while now (6) Smoker: Code(s): F17.200 - Nicotine dependence, unspecified, uncomplicated Category: Social Hx Plan: Patient is counseled again on complete smoking cessation (7) Overweight (BMI 25.0-29.9): Code(s): E66.3 - Overweight Category: Medical Plan: Reinforced diet/exercise as tolerated/lose weight - she has gained some weight since she was last seen here over 2 years ago Plan To scheduled for her annual PE LOLA Will also have her get T spot testing done to fulfill her school PE requirement Orders: Orders Comprehensive [place]man. Panel Fast 07/28/25 E78.00 - Pure hypercholesterolemia, unspecified Lipid Panel 07/28/25 E78.00 - Pure hypercholesterolemia, unspecified TSH reflex Free T4 07/28/25 E78.00 - Pure hypercholesterolemia, unspecified UA CC w/rflx Micro + Cult 07/28/25 R30.0 - Dysuria T Spot TB 07/29/25 Z11.1 - Encounter for screening for respiratory tuberculosis Complete Blood Count Auto Diff 07/28/25 D64.9 - Anemia, unspecified Vitamin D 25-OH Total 07/28/25 E55.9 - Vitamin D deficiency, unspecified
== END 2025-07-28 17:16 | disposition home or self-care (01) ==
LOC: HO.HMCH 16:33
PROVIDERS: PCP Internal Medicine; Visit Provider Internal Medicine
DX: K21.9 Gastro-esophageal reflux disease without esophagitis (principal); K58.9 Irritable bowel syndrome, unspecified; E78.00 Pure hypercholesterolemia, unspecified; E55.9 Vitamin D deficiency, unspecified; F33.9 Major depressive disorder, recurrent, unspecified; F17.200 Nicotine dependence, unspecified, uncomplicated; E66.3 Overweight

== ENCOUNTER → 2025-07-28 16:33 | Outpatient (BNVA) | payer MEDICAID, SELFPAY | PROVIDERS: PCP Internal Medicine; Visit Provider Internal Medicine | DX: K21.9 Gastro-esophageal reflux disease without esophagitis (principal); K58.9 Irritable bowel syndrome, unspecified; E78.00 Pure hypercholesterolemia, unspecified; E55.9 Vitamin D deficiency, unspecified; F33.9 Major depressive disorder, recurrent, unspecified; F17.210 Nicotine dependence, cigarettes, uncomplicated | CPT/HCPCS: 96127; 99212 ==

== ENCOUNTER 2025-07-29 16:26 | Outpatient (REF) | payer MEDICAID, SELFPAY | END 2025-07-29 16:27 | disposition home or self-care (01) | LOC: HO.LAB 16:26 | PROVIDERS: PCP Internal Medicine; Visit Provider Internal Medicine | DX: Z11.1 Encounter for screening for respiratory tuberculosis (principal) | CPT/HCPCS: 36415; 86481 ==

== ENCOUNTER 2025-07-31 12:53 | Outpatient (AMB) | payer MEDICAID, SELFPAY ==
--- NOTE | 2025-07-31 13:17 | MHC.PC.OV ---
Vital Signs 07/31/25 13:19 Height 4 ft 10 in Weight 128 lb 2 oz BMI 26.8 BP 126/62 Blood Pressure Location Lt brachial Position Sitting Pulse 84 Pulse Source Pulse Oximeter Temp 97.1 F Temp Source Temporal Artery Scan Pulse Oximetry (%) 96 Oxygen Delivery Method Room Air Intake Visit Reasons: annual exam Intake Note: Patient is here today for a physical. Medical Housekeeper Required: No Plate Worker Helper: Not Required per policy Accompanied by: Self / Same As Patient Allergies meperidine (Demerol) Allergy (Unknown, Verified 07/31/25 13:18) HBP Medication List - Last Reconciled 07/31/25 by Hyun Friedman MD bisacodyl 10 mg (2 x 5 mg) PO BEDTIME diclofenac sodium 1% (Arthritis Pain (diclofenac)) 2 grams topical QID PRN ibuprofen 800 mg PO TID PRN lidocaine 5% 1 patch topical DAILY PRN 15 days anqopo-ldjcexoj-mkfuakq (pork) 6,000-19,000 -30,000 unit (Creon) 1 cap PO .qid ac magnesium citrate (Citrate of Magnesia oral) 150 mL PO DAILY methocarbamol 750 mg PO TID PRN methylcellulose (laxative) (Citrucel) 500 mg PO DAILY mirtazapine 7.5 mg PO BEDTIME ondansetron 4 mg PO Q8H PRN pantoprazole 40 mg PO DAILY Tobacco use date assessed: 07/31/25 Dental Screening Dental Screen Date: 07/28/25 HPI HPI Comments History of Present Illness Details The patient is a 64 year old female with PMH of MDD, GERD, presenting for a physical examination required for a new job. She has a history of depression, for which she has been prescribed mirtazapine, but she has not taken it for a while. The patient reports chronic left leg pain resulting from a past accident. The pain occurs intermittently and at times is severe enough to cause swelling and require wheelchair use. She uses ibuprofen and a topical gel for the pain. The patient has a history of acid reflux, for which she takes pantoprazole in the morning. She also has a history of irritable bowel syndrome with constipation. She is due for a colonoscopy but has not yet scheduled it. Regarding health maintenance, the patient is also due for a mammogram scheduled in 09/2025. She has had two COVID-19 vaccinations and has declined the flu shot. She is due for a tetanus shot which was administered today. [facility] Medical History (Updated 07/31/25 @ 15:28 by Hyun Friedman MD) Vitamin D deficiency Pure hypercholesterolemia Irritable bowel syndrome (IBS) GERD without esophagitis Smoker Depression Menopause Acute anxiety Acute insomnia Kidney stones Surgical History History of esophagogastroduodenoscopy (EGD) Hx of colonoscopy No history of previous surgery Family History (Updated 07/31/25 @ 13:18 by EJ Valdes) Maternal Uncle HTN (hypertension) Maternal Uncle HTN (hypertension) Maternal Uncle HTN (hypertension) Maternal Uncle HTN (hypertension) Maternal Uncle HTN (hypertension) Family/Other Cancer Social History (Updated 07/31/25 @ 13:28 by EJ Valdes) Housing: Apartment (With daughter) Alcohol intake: current Alcohol intake frequency: holidays/special occasions only Patient Tobacco Use Status: Current everyday Tobacco user Tobacco use type: Cigarette Cigarette Packs Per Day: 0.5 Cigarettes Per Day: 8 e-Cigarette/Vaping Use: Never Used Second Hand Smoke Exposure: Yes service: No Current occupational status: retired and disabled Cognitive needs: No Hearing needs: No Vision needs: No Questionnaire Thrive Questionnaire Date Thrive assessed: 07/28/25 I am a: Patient What is your living situation today?: I do not have a steady places to live I choose not to answer this question Within the past 12 months, did the food you bought not last and you didn't have the money to get more?: Sometimes True Within the past 12 months, did you worry whether your food would run out before you got money to buy more?: Sometimes True Do you have trouble paying for medicines?: Yes Do you have trouble getting transportation to medical appointments?: Yes Do you have trouble paying your heating and electricity bill?: Yes Do you have trouble taking care of your child, family member or friend?: I choose not to answer this question Do you have trouble with day-to-day activities such as bathing, preparing meals, shopping, managing finances, etc.?: No Are you currently unemployed and looking for a job?: No Are you interested in more education?: No Please select the resources that you would like help with: None Currently or been in a relationship where the following occur: I choose not to answer THRIVE Score: 5 AUDIT C Alcohol Use Questionnaire (AUDIT-C) 1. How often do you have a drink containing alcohol?: 4 or more times a week 2. How many drinks containing alcohol do you have on a typical day when you are drinking?: 1 or 2 3. How often do you have six or more drinks on one occasion?: Never Total Score: 4 GUALBERTO-7 AMB Questionnaire GUALBERTO-7 Date GUALBERTO - 7 assessed: 06/01/23 Feeling nervous, anxious, or on edge: 0 = Not at all Not being able to stop or control worryin = Not at all Worrying too much about different things: 0 = Not at all Trouble relaxin = Not at all Being so restless that it is hard to sit still: 0 = Not at all Becoming easily annoyed or irritable: 0 = Not at all Source: Developed by Drs. Junior Wen, Meena Gay, Lambert Yung and colleagues, with an educational ashvin from [employer]. Review of Systems Const Details: Positives besides what was mentioned in HPI are in BOLD Constitutional: No Weight Change, No Fever, No Chills, No Night Sweats, No Fatigue, No Malaise ENT/Mouth: No Hearing Changes, No Ear Pain, No Nasal Congestion, No Sinus Pain, No Hoarseness, No sore throat, No Rhinorrhea, No Swallowing Difficulty Eyes: No Eye Pain, No Swelling, No Redness, No Foreign Body, No Discharge, No Vision Changes Cardiovascular: No Chest Pain, No SOB, No PND, No Dyspnea on Exertion, No Orthopnea, No Claudication, No Edema, No Palpitations Respiratory: No Cough, No Sputum, No Wheezing, No Smoke Exposure, No Dyspnea Gastrointestinal: No Nausea, No Vomiting, No Diarrhea, No Constipation, No Pain, No Heartburn, No Anorexia, No Dysphagia, No Hematochezia, No Melena, No Flatulence, No Jaundice Genitourinary: No Dysmenorrhea, No DUB, No Dyspareunia, No Dysuria, No Urinary Frequency, No Hematuria, No Urinary Incontinence, No Urgency, No Flank Pain, No Urinary Flow Changes, No Hesitancy Musculoskeletal: No Arthralgias, No Myalgias, No Joint Swelling, No Joint Stiffness, No Back Pain, No Neck Pain, No Injury History Skin: No Skin Lesions, No Pruritis, No Hair Changes, No Breast/Skin Changes, No Nipple Discharge Neuro: No Weakness, No Numbness, No Paresthesias, No Loss of Consciousness, No Syncope, No Dizziness, No Headache, No Coordination Changes, No Recent Falls Psych: No Anxiety/Panic, No Depression, No Insomnia, No Personality Changes, No Delusions, No Rumination, No SI/HI/AH/VH, No Social Issues, No Memory Changes, No Violence/Abuse Hx., No Eating Concerns Heme/Lymph: No Bruising, No Bleeding, No Transfusions History, No Lymphadenopathy Endocrine: No Polyuria, No Polydipsia, No Temperature Intolerance Physical exam (Primary Care) Vital Signs: Last Vital Signs Temp 97.1 F 07/31/25 13:19 Pulse 84 07/31/25 13:19 BP 126/62 07/31/25 13:19 Pulse Ox 96 07/31/25 13:19 Oxygen Delivery Method Room Air 07/31/25 13:19 BMI result Body Mass Index 26.8 Tobacco/Smoking Status: Tobacco use Status Tobacco use date assessed 07/31/25 07/31/25 13:27 Patient Tobacco Use Status Current everyday Tobacco 07/31/25 13:28 Tobacco use type Cigarette 07/31/25 13:28 e-Cigarette/Vaping Use Never Used 07/31/25 13:28 Thrive Assessment: Date of Thrive Assessment Date Thrive assessed 07/28/25 07/31/25 13:27 Currently or been in a relationship where the following occur: I choose not to answer Const Other: Pertinent findings are in BOLD GENERAL APPEARANCE NAD, activity normal for age, well developed/ well nourished, no cyanosis, pallor, or diaphoresis. EYES lids/conjunctiva normal. EARS/NOSE/THROAT Mucous membranes moist, nares normal, lips/teeth normal uvula midline without oral pharyngeal erythema, exudate or swelling TMs normal bilaterally. No lymphangitis/lymphedema. HEAD/NECK normocephalic atraumatic, no facial trauma, neck is supple. RESPIRATORY respiratory effort normal, speaks in full sentences, no tripod position, no accessory muscle use. Lungs clear to auscultation without rhonchi, wheezes, rales CARDIAC Regular rate and rhythm, no edema. ABDOMINAL Soft, ND/NT. No evidence of fluid wave. No pulsatile masses on exam, rebound tenderness, Dueñas sign or pain over Mcburney's point. MUSCLES/EXTREMITIES No abnormal range of motion, no swelling. SKIN Warm, pink and dry. No rashes, dermatoses, petechiae or lesions. NEUROLOGICAL Speech is clear and appropriate. Normal level of consciousness. Gait and coordination are normal. 5/5 strength in all extremities. PSYCH Normal mood and affect. Judgement/competence is appropriate Immunizations Boostrix Tdap 2.5 Lf unit-8 mcg-5 Lf/0.5 mL intramuscular syringe Performing Provider: Hyun Friedman MD Performing Location: [facility] Administered by: Selena Santana LPN on 07/31/25 14:13 Dose Route Admin Location Dispensed Lot Number Expiration Date [facility] Driver Messenger 0.5 mL IM Left Deltoid 0.5 mL [id number] 01/23/28 11320-903-16 [employer] Total Dispensed Waste 0.5 mL 0 % VIS Given Date VIS Provided VIS Publication Date 07/31/25 Single Vaccine 21 Eligibility Eligibility Date Funding Source Not [facility] Eligible 07/31/25 Private Coding Level of Care Code Est Pt Level 4 (80031) Diagnoses Healthcare maintenance Z00.00 Episode of recurrent major depressive disorder, unspecified depression episode severity F33.9 Depression Type: major depressive disorder Major depression recurrence: recurrent Active/Remission status: currently active Major depression episode severity: unspecified GERD without esophagitis K21.9 Irritable bowel syndrome, unspecified type K58.9 Irritable bowel syndrome type: unspecified Left leg pain M79.605 Time Spent (min) 30 Assessment & Plan Assessment & Plan (1) Healthcare maintenance: Code(s): Z00.00 - Encounter for general adult medical examination without abnormal findings Category: Medical Plan: CBC, CMP, Lipid panel, A1C, TSH w T4. Ordered. Shingles 2 doses when >50 yo. COVID: two doses. Completed. Tdap: Due today. Ordered. Pneumococcal: >50 yo. 18-49 with CKD, lung disease, weakened immune system, Heart disease, DM, cochlear implant. Flu vaccine: Declined. Colonoscopy: 45-75. Due for repeat. Referred to GI. AAA: 65 -75. NI as the patient is female with no family history of AAA. CT lun - 80. HPV: dock pumper referral. HIV: Ordered. HCV: Ordered. Dexa: At 65. Mammogram: Ordered. (2) Depression: Code(s): F32.9 - Major depressive disorder, single episode, unspecified Category: Medical Qualifiers: Depression Type: major depressive disorder Major depression recurrence: recurrent Active/Remission status: currently active Major depression episode severity: unspecified Qualified Code(s): F33.9 - Major depressive disorder, recurrent, unspecified Plan: - Mirtazapine was refilled. - Advised to follow up with [facility] regarding tolerance of the medication as it has been restarted recently. (3) GERD without esophagitis: Code(s): K21.9 - Gastro-esophageal reflux disease without esophagitis Category: Medical Plan: - Pantoprazole was refilled. - Patient instructed to take it 30 minutes before her first meal. - Referred to Gastroenterology for further management. (4) Irritable bowel syndrome (IBS): Code(s): K58.9 - Irritable bowel syndrome, unspecified Category: Medical Qualifiers: Irritable bowel syndrome type: unspecified Qualified Code(s): K58.9 - Irritable bowel syndrome without diarrhea Plan: - Referred to Gastroenterology for management of IBS and to schedule a colonoscopy. - Cotinue Bisacodyl, Mag citrate, Pantoprazole, and zofran. (5) Left leg pain: Code(s): M79.605 - Pain in left leg Category: Medical Plan: - Refilled ibuprofen 800 mg for as-needed use. - Diclofenac gel was also refilled. - Counseled on the risk of increased gastrointestinal bleeding with ibuprofen and advised to minimize use. Plan I saw the patient today for a pre-employment physical. I refilled her mirtazapine for depression, ibuprofen and diclofenac gel for her chronic left leg pain, and pantoprazole for acid reflux. I advised her to be cautious with ibuprofen use due to its potential to worsen her reflux and cause stomach ulcers. I ordered screening labs including a CBC, CMP, A1c, lipids, TSH, HIV, and Hepatitis C. I referred her to Gastroenterology for a colonoscopy and management of her IBS and reflux, and also placed a referral for a mammogram. We administered a tetanus vaccine in the office today. I recommended she schedule a follow-up appointment in approximately three months. Orders: Orders Hepatitis C Antibody Reflex Today Z00.00 - Encounter for general adult medical examination without abnormal findings HIV Ab/Ag Today Z00.00 - Encounter for general adult medical examination without abnormal findings Comprehensive Met. Panel Today Z00.00 - Encounter for general adult medical examination without abnormal findings TSH reflex Free T4 Today Z00.00 - Encounter for general adult medical examination without abnormal findings MM screening mammo BI Today Z00.00 - Encounter for general adult medical examination without abnormal findings Complete Blood Count no Diff Today Z00.00 - Encounter for general adult medical examination without abnormal findings Hemoglobin A1c Today Z00.00 - Encounter for general adult medical examination without abnormal findings Lipid Panel Today Z00.00 - Encounter for general adult medical examination without abnormal findings TDaP Immunization Today Z23 - Encounter for immunization Referrals GASOLINE TESTER Referral Z00.00 - Encounter for general adult medical examination without abnormal findings Gastroenterology Referral K21.9 - Gastro-esophageal reflux disease without esophagitis, K58.9 - Irritable bowel syndrome, unspecified, Z12.11 - Encounter for screening for malignant neoplasm of colon Medications: Refilled mirtazapine Tomelo todas las noches antes de acostarse 7.5 mg PO BEDTIME 90 tabs 2RF K31.84 - Gastroparesis ibuprofen Take with food 800 mg PO TID PRN 90 tabs 2RF pain pantoprazole take one tablet half an hour before breakfast 40 mg PO DAILY 90 tabs 2RF K21.9 - Gastro-esophageal reflux disease without esophagitis diclofenac sodium 1% (Arthritis Pain (diclofenac)) apply to painful joint as needed 2 grams topical QID PRN 100 grams 2RF joint pain
[2025-07-31 13:19] VITALS: BP 126/62; PULSE 84; TEMP 36.2; O2SAT 96; BMI 26.8
== END 2025-07-31 14:13 | disposition home or self-care (01) ==
LOC: HO.HMCH 12:54
PROVIDERS: PCP Internal Medicine; Visit Provider Internal Medicine
DX: Z00.00 Encounter for general adult medical examination without abnormal findings (principal); F33.9 Major depressive disorder, recurrent, unspecified; K21.9 Gastro-esophageal reflux disease without esophagitis; K58.9 Irritable bowel syndrome, unspecified; M79.605 Pain in left leg; Z23 Encounter for immunization

== ENCOUNTER 2025-07-31 12:53 | Outpatient (REF) | payer MEDICAID, SELFPAY ==
[2025-07-31 17:10] LABS: Hematocrit 38.9 % (37.0-47.0); Hemoglobin 13.0 g/dl (12.0-16.0); Mean Corpuscular HGB Conc 33.4 g/dl (31.0-35.0); Mean Corpuscular Hemoglobin 31.3 pg (27.0-33.0); Mean Corpuscular Volume 93.7 fL (80.0-98.0); NRBC Abs Auto 0.000 X10*3/uL (0.0-0.012); NRBC Pct Auto 0.0 /100WBC (0.0-0.2); Platelet Count 273 X10*3/uL (160-400); Red Blood Count 4.15 X10*6/uL (4.20-5.50); White Blood Count 8.3 X10*3/uL (4.8-10.8)
[2025-07-31 18:18] LABS: Alanine Aminotransferase 14 U/L (0-31); Albumin Level 4.5 g/dL (3.5-5.0); Alkaline Phosphatase 57 U/L (39-117); Anion Gap 11 (12-20); Aspartate Amino Transferase 24 U/L (5-31); Blood Urea Nitrogen 11 mg/dL (9-16); Calcium 9.3 mg/dL (8.4-10.2); Carbon Dioxide 29 mmol/L (22-29); Chloride 106 mmol/L (96-108); Cholesterol 202 mg/dL (<200); Estimated Glomerular Filt Rate > 60; HDL Cholesterol 45 mg/dL (>40); Potassium 4.0 mmol/L (3.3-5.1); Sodium 142 mmol/L (135-145); Total Protein 7.6 g/dL (6.5-8.0); Triglycerides 135 mg/dL (<150)
[2025-08-03 04:13] LABS: HIV Num 1 0.59 S/CO (0.00-0.99); ~HepC Num1 0.10 S/CO (0.00-0.79); ~Hepatitis C Antibody Nonreactive (Nonreactive)
== END 2025-07-31 12:54 | disposition home or self-care (01) ==
LOC: HO.LAB 12:53
PROVIDERS: PCP Internal Medicine; Visit Provider Internal Medicine
DX: Z00.00 Encounter for general adult medical examination without abnormal findings (principal); F33.9 Major depressive disorder, recurrent, unspecified; K21.9 Gastro-esophageal reflux disease without esophagitis; K58.9 Irritable bowel syndrome, unspecified; M79.605 Pain in left leg
CPT/HCPCS: 36415; 80053; 80061; 83036; 84443; 85027; 86803; 87389; 90471; 90715; 99212